=== PATIENT | female | born 1960 | race Caucasian/White ===

== ENCOUNTER → 2020-10-16 | Outpatient (CLI) | payer OTHER ==
[~2020-10-16] MED LIST: ADULT LOW DOSE81 MG PO; COZAAR; LOPRESSOR PO; [UNRECOGNIZED DRUG - REMARK] PO
== END ==
LOC: M.RAD 10:34
PROVIDERS: ATTEND Family Medicine
DX: Z12.31 Encounter for screening mammogram for malignant neoplasm of breast (principal)